=== PATIENT | male | born 1995 | race Caucasian/White ===

== ENCOUNTER 2018-02-04 14:55 | Emergency (ER) | payer SELFPAY ==
[2018-02-04 15:14] VITALS: BP 111/65; TEMP 97.9; O2SAT 95
[2018-02-04] MEDS ORDERED: SULFA/TRIMETH 800/160 (DS) TAB 1 EA TAB PO ONE (15:23)
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
[2018-02-04] MEDS ORDERED: NEOMYCIN-BACITRACIN-POLYMYXIN 0.9 GM UD TOP ONE (15:31)
== END 2018-02-04 15:38 | disposition home or self-care (01) ==
LOC: ER 14:55
DX: S61.411A Laceration without foreign body of right hand, initial encounter (principal); W45.8XXA Other foreign body or object entering through skin, initial encounter; Y92.9 Unspecified place or not applicable